=== PATIENT | male | born 1965 | race Caucasian/White ===

== ENCOUNTER 2021-02-12 11:44 | Observation (INO) | payer OTHER ==
[~2021-02-12] VITALS: Ht 175.3 cm; Wt 104.7 kg
[2021-02-12 12:35] LABS: BASOPHILS ABSOLUTE AUTO 0.02 K/mm3 (0.00-0.23); BASOPHILS PERCENT AUTO 0 % (0-2); EOSINOPHILS PERCENT AUTO 2 % (0-6); Hemoglobin 15.9 g/dL (13.5-17.5); IMMATURE GRAN ABSOLUTE AUTO 0.02 K/mm3 (0.00-0.10); IMMATURE GRAN PERCENT AUTO 0 % (0-1); LYMPHOCYTES ABSOLUTE AUTO 1.21 K/mm3 (0.84-5.20); LYMPHOCYTES PERCENT AUTO 18 % (21-46); MONOCYTES PERCENT AUTO 10 % (4-13); Mean Corpuscular HGB 30.3 pg (26.0-34.0); Mean Corpuscular HGB Conc 33.1 g/dL (31.5-36.5); Mean Corpuscular Volume 92 fL (80-100); Mean Platelet Volume 10.5 fL (9.1-12.4); NEUTROPHILS ABSOLUTE AUTO 4.81 K/mm3 (1.96-9.15); NEUTROPHILS PERCENT AUTO 70 % (41-73); Platelet Count 177 K/mm3 (150-400); RDW Coefficient Variation 12.7 % (11.7-14.2); RDW Standard Deviation 43.1 fL (35.1-46.3); Red Blood Cell Count 5.24 M/mm3 (4.30-5.90); White Blood Cell Count 6.86 K/mm3 (4.00-11.30)
[2021-02-12 12:59] LABS: Alanine Aminotransfer (ALT/SGP 43 U/L (12-78); Albumin, Blood 3.8 g/dL (3.4-5.0); Albumin/Globulin Ratio 1.1 (0.8-1.8); Alk Phos 91 U/L (50-136); Anion Gap 6 mmol/L (6-16); Aspartate Aminotrans (AST/SGOT 25 U/L (12-37); Bilirubin, Total 0.7 mg/dL (0.1-1.0); Blood Urea Nitrogen 19 mg/dL (8-24); Bun/Creatinine Ratio 17.4 (12.0-20.0); CO2, Blood 23 mmol/L (21-32); Chloride, Blood 112 mmol/L (98-108); Creatinine, Blood 1.09 mg/dL (0.60-1.20); Globulin, Blood 3.6 g/dL (2.2-4.0); Glomerular Filtration Rate >60 (60-); Glucose, Blood 100 mg/dL (70-99); Potassium, Blood 3.9 mmol/L (3.5-5.5); Sodium, Blood 141 mmol/L (136-145); Total Protein, Blood 7.4 g/dL (6.4-8.2)
--- NOTE | 2021-02-12 17:46 | NUR ---
PT ARRIVED TO UNIT AT APROX 1740 FROM ER. PT WITH C/O LUQ/EPIGASTRIC PAIN, DESCRIBES "BURNING", REPORTS TOLERABLE AT THIS TIME. PT IS NPO. VSS AT TIME OF ARRIVAL.
[2021-02-13 06:20] LABS: BASOPHILS ABSOLUTE AUTO 0.02 K/mm3 (0.00-0.23); BASOPHILS PERCENT AUTO 0 % (0-2); EOSINOPHILS PERCENT AUTO 2 % (0-6); Hematocrit 44.8 % (37.0-53.0); Hemoglobin 14.8 g/dL (13.5-17.5); IMMATURE GRAN ABSOLUTE AUTO 0.02 K/mm3 (0.00-0.10); IMMATURE GRAN PERCENT AUTO 0 % (0-1); LYMPHOCYTES ABSOLUTE AUTO 1.75 K/mm3 (0.84-5.20); LYMPHOCYTES PERCENT AUTO 27 % (21-46); MONOCYTES ABSOLUTE AUTO 0.72 K/mm3 (0.16-1.47); MONOCYTES PERCENT AUTO 11 % (4-13); Mean Corpuscular HGB 30.8 pg (26.0-34.0); Mean Corpuscular Volume 93 fL (80-100); Mean Platelet Volume 11.3 fL (9.1-12.4); NEUTROPHILS ABSOLUTE AUTO 3.79 K/mm3 (1.96-9.15); NEUTROPHILS PERCENT AUTO 59 % (41-73); Platelet Count 146 K/mm3 (150-400); RDW Coefficient Variation 12.8 % (11.7-14.2); RDW Standard Deviation 44.4 fL (35.1-46.3); Red Blood Cell Count 4.81 M/mm3 (4.30-5.90)
[2021-02-13 06:34] LABS: Prothrombin Time Results 10.8 Sec (9.7-11.5)
[2021-02-13 07:12] LABS: Alanine Aminotransfer (ALT/SGP 32 U/L (12-78); Albumin, Blood 3.3 g/dL (3.4-5.0); Albumin/Globulin Ratio 1.2 (0.8-1.8); Alk Phos 69 U/L (50-136); Anion Gap 5 mmol/L (6-16); Aspartate Aminotrans (AST/SGOT 20 U/L (12-37); Bilirubin, Total 1.4 mg/dL (0.1-1.0); Blood Urea Nitrogen 15 mg/dL (8-24); Bun/Creatinine Ratio 12.8 (12.0-20.0); CHOL/HDL RATIO 4.5; CO2, Blood 25 mmol/L (21-32); Calcium, Blood 8.1 mg/dL (8.5-10.1); Chloride, Blood 113 mmol/L (98-108); Cholesterol 195 mg/dL (50-200); Creatinine, Blood 1.17 mg/dL (0.60-1.20); Globulin, Blood 2.8 g/dL (2.2-4.0); Glomerular Filtration Rate >60 (60-); Glucose, Blood 82 mg/dL (70-99); HDL Cholesterol 43 mg/dL (>39); LDL/HDL RATIO 3.1; Low Density Lipoprotein Chol 134 mg/dL (0-110); Potassium, Blood 3.9 mmol/L (3.5-5.5); Sodium, Blood 143 mmol/L (136-145); Total Protein, Blood 6.1 g/dL (6.4-8.2); Triglycerides 91 mg/dL (30-160); Very Low Density Lipoprot Chol 18 mg/dL (6-32)
[2021-02-13 10:56] LABS: SARS-Cov-2 (COVID-19) PCR, MMC NEGATIVE (NEGATIVE)
--- NOTE | 2021-02-13 12:54 | NUR ---
PT IN 10 PAIN BREATHING THRU PAIN GROANING BP ELEVATED PT GIVEN DILAUDID 1MG IVP PER PRN PAIN ORDER
--- NOTE | 2021-02-13 13:09 | NUR ---
PT TO OR AT APROX 1230.
--- NOTE | 2021-02-13 15:02 | NUR ---
02/13/21 1502 [facility] SCHEDULED DOSE OF ANTIBIOTICS DUE AT 1800 ON 02/13/21, DR MADE AWARE, NO NEW ORDERS.
--- NOTE | 2021-02-13 18:25 | NUR ---
SHIFT SUMMARY PT POD 0 LAP CLARE. LAP SITES X'S 3 WITH GAUZE AND TEGADERM C/D/I. PT REPORTS "PRESSURE" 02/27, MEDICATED WITH 1MG DILUADID WITH RELIEF 10/28. PT GIVEN CLEAR LIQUIDS, WILL ADVANCE TOLERATED.
--- NOTE | 2021-02-14 04:29 | NUR ---
SHIFT SUMMARY: PT POD#1 FOR A LAP CLARE. GAUZE SITES C/D/I. PAIN BEING MANAGED WITH 1MG DILAUDID PER EMAR. PT TOLERATING A CLEAR LIQUID DIET. DENIES N/V. ACTIVE BT X4. DENIES PASSING FLATUS. PT OUT OF BED TO USE RESTROOM INDEPENDENTLY. VOIDING WELL. POSSIBLE DISCHARGE HOME TODAY.
[2021-02-14 04:57] LABS: Hematocrit 43.6 % (37.0-53.0); Hemoglobin 14.4 g/dL (13.5-17.5); Mean Corpuscular HGB 30.5 pg (26.0-34.0); Mean Corpuscular Volume 92 fL (80-100); Platelet Count 160 K/mm3 (150-400); RDW Coefficient Variation 12.8 % (11.7-14.2); RDW Standard Deviation 43.8 fL (35.1-46.3); Red Blood Cell Count 4.72 M/mm3 (4.30-5.90); White Blood Cell Count 10.68 K/mm3 (4.00-11.30)
[2021-02-14 05:19] LABS: Alanine Aminotransfer (ALT/SGP 53 U/L (12-78); Albumin, Blood 3.3 g/dL (3.4-5.0); Albumin/Globulin Ratio 1.1 (0.8-1.8); Alk Phos 68 U/L (50-136); Anion Gap 6 mmol/L (6-16); Aspartate Aminotrans (AST/SGOT 37 U/L (12-37); Bilirubin, Total 1.5 mg/dL (0.1-1.0); Blood Urea Nitrogen 11 mg/dL (8-24); Bun/Creatinine Ratio 9.4 (12.0-20.0); CO2, Blood 25 mmol/L (21-32); Calcium, Blood 8.6 mg/dL (8.5-10.1); Chloride, Blood 110 mmol/L (98-108); Creatinine, Blood 1.17 mg/dL (0.60-1.20); Globulin, Blood 3.1 g/dL (2.2-4.0); Glomerular Filtration Rate >60 (60-); Glucose, Blood 106 mg/dL (70-99); Sodium, Blood 141 mmol/L (136-145); Total Protein, Blood 6.4 g/dL (6.4-8.2)
[2021-02-14] MEDS ORDERED: Norco 5-325 Ta1 EACH PO (14:21)
--- NOTE | 2021-02-14 15:32 | NUR ---
DC INSTRUCTIONS GIVEN, VERBALIZED UNDERSTANDING, DC'D TO PT'S APARTMENT [facility]IA [facility], IV'S DC'D, [facility] INTACT.
== END 2021-02-14 15:34 | disposition home or self-care (01) ==
LOC: ER 11:44 → SURS 11:45 → ER 16:55 → SURS 16:55
PROVIDERS: Physician Assistant; Surgery; ADMIT Internal Medicine
PROC: BF10YZZ Fluoroscopy of Bile Ducts using Other Contrast (ICD-10-PCS; principal; 2021-02-13 12:00)
PROC: 0FT44ZZ Resection of Gallbladder, Percutaneous Endoscopic Approach (ICD-10-PCS; principal; 2021-02-13 12:00)
DX: K80.12 Calculus of gallbladder with acute and chronic cholecystitis without obstruction (principal); J45.909 Unspecified asthma, uncomplicated; Z87.891 Personal history of nicotine dependence; M41.9 Scoliosis, unspecified; K76.0 Fatty (change of) liver, not elsewhere classified; Z20.822 Contact with and (suspected) exposure to COVID-19
CPT/HCPCS: 36415; 74300; 76705; 80053; 80061; 83690; 83735; 84443; 85025; 85027; 85610; A9270; C9113; J1100; J1170; J1650; J1885; J2250; J2270; J2405; J2543; J2704; J2710; J2765; J3010; J7030; U0004

== ENCOUNTER → 2021-02-27 | Outpatient (CLI) | payer OTHER ==
[~2021-02-27] MED LIST: AMOCLA875 PO; Norco 5-325 Ta1 EACH PO; Norco 7.5-3251 EACH PO; ONDA4ODT MM; PANT40 PO
[2021-02-27 10:27] LABS: SARS-Cov-2 (COVID-19) PCR, MMC NEGATIVE (NEGATIVE)
== END | disposition home or self-care (01) ==
LOC: LAB PR 09:33
PROVIDERS: Anesthesiology
DX: Z01.812 Encounter for preprocedural laboratory examination (principal); Z20.822 Contact with and (suspected) exposure to COVID-19
CPT/HCPCS: U0004

== ENCOUNTER 2021-03-16 16:49 | Emergency (ER) | payer OTHER ==
[~2021-03-16] VITALS: Ht 175.3 cm; Wt 104.3 kg
[~2021-03-16 16:49] MED LIST changes: -AMOCLA875 PO; -Norco 7.5-3251 EACH PO; -ONDA4ODT MM; -PANT40 PO
[2021-03-16 17:22] LABS: BASOPHILS ABSOLUTE AUTO 0.02 K/mm3 (0.00-0.23); BASOPHILS PERCENT AUTO 0 % (0-2); EOSINOPHILS ABSOLUTE AUTO 0.02 K/mm3 (0.00-0.68); EOSINOPHILS PERCENT AUTO 0 % (0-6); Hematocrit 48.2 % (37.0-53.0); Hemoglobin 16.4 g/dL (13.5-17.5); IMMATURE GRAN ABSOLUTE AUTO 0.03 K/mm3 (0.00-0.10); IMMATURE GRAN PERCENT AUTO 0 % (0-1); LYMPHOCYTES PERCENT AUTO 10 % (21-46); MONOCYTES ABSOLUTE AUTO 0.93 K/mm3 (0.16-1.47); MONOCYTES PERCENT AUTO 9 % (4-13); Mean Corpuscular HGB 30.6 pg (26.0-34.0); Mean Corpuscular Volume 90 fL (80-100); Mean Platelet Volume 11.1 fL (9.1-12.4); NEUTROPHILS ABSOLUTE AUTO 8.68 K/mm3 (1.96-9.15); NEUTROPHILS PERCENT AUTO 81 % (41-73); Platelet Count 215 K/mm3 (150-400); RDW Coefficient Variation 12.6 % (11.7-14.2); RDW Standard Deviation 41.3 fL (35.1-46.3); Red Blood Cell Count 5.36 M/mm3 (4.30-5.90); White Blood Cell Count 10.78 K/mm3 (4.00-11.30)
[2021-03-16 17:39] LABS: Albumin, Blood 4.3 g/dL (3.4-5.0); Albumin/Globulin Ratio 1.2 (0.8-1.8); Bilirubin, Total 2.1 mg/dL (0.1-1.0); Bun/Creatinine Ratio 12.7 (12.0-20.0); Calcium, Blood 9.2 mg/dL (8.5-10.1); Creatinine, Blood 1.26 mg/dL (0.60-1.20); Globulin, Blood 3.6 g/dL (2.2-4.0); Potassium, Blood 3.9 mmol/L (3.5-5.5); Total Protein, Blood 7.9 g/dL (6.4-8.2)
[2021-03-16] MEDS ORDERED: PANT40 PO (20:37)
[2021-03-16] MEDS ORDERED: ONDA4ODT MM (20:37)
[2021-03-16] MEDS ORDERED: Norco 7.5-3251 EACH PO (20:37)
[2021-03-16] MEDS ORDERED: AMOCLA875 PO (20:37)
== END 2021-03-16 21:25 | disposition home or self-care (01) ==
LOC: ER 16:49
PROVIDERS: Physician Assistant
DX: K52.9 Noninfective gastroenteritis and colitis, unspecified (principal); Z90.49 Acquired absence of other specified parts of digestive tract
CPT/HCPCS: 74177; 80053; 83690; 85025; 93005; 93010; 96374-59; 96375; 99284-25; A9270; J2405; J3010; Q9967

== ENCOUNTER 2021-04-14 05:52 | Emergency (ER) | payer OTHER ==
[~2021-04-14] VITALS: Ht 175.3 cm; Wt 108.9 kg
[~2021-04-14 05:52] MED LIST changes: +AMOCLA875 PO; +Norco 7.5-3251 EACH PO; +ONDA4ODT MM; +PANT40 PO
[2021-04-14 06:23] LABS: BASOPHILS ABSOLUTE AUTO 0.02 K/mm3 (0.00-0.23); BASOPHILS PERCENT AUTO 0 % (0-2); EOSINOPHILS PERCENT AUTO 0 % (0-6); Hematocrit 52.4 % (37.0-53.0); IMMATURE GRAN ABSOLUTE AUTO 0.02 K/mm3 (0.00-0.10); IMMATURE GRAN PERCENT AUTO 0 % (0-1); LYMPHOCYTES ABSOLUTE AUTO 0.98 K/mm3 (0.84-5.20); LYMPHOCYTES PERCENT AUTO 10 % (21-46); MONOCYTES ABSOLUTE AUTO 0.62 K/mm3 (0.16-1.47); MONOCYTES PERCENT AUTO 6 % (4-13); Mean Corpuscular HGB 30.7 pg (26.0-34.0); Mean Corpuscular HGB Conc 34.4 g/dL (31.5-36.5); Mean Corpuscular Volume 89 fL (80-100); Mean Platelet Volume 10.4 fL (9.1-12.4); NEUTROPHILS ABSOLUTE AUTO 8.69 K/mm3 (1.96-9.15); NEUTROPHILS PERCENT AUTO 84 % (41-73); Platelet Count 209 K/mm3 (150-400); RDW Coefficient Variation 12.3 % (11.7-14.2); RDW Standard Deviation 40.6 fL (35.1-46.3); Red Blood Cell Count 5.86 M/mm3 (4.30-5.90); White Blood Cell Count 10.33 K/mm3 (4.00-11.30)
[2021-04-14 06:43] LABS: Albumin, Blood 4.2 g/dL (3.4-5.0); Calcium, Blood 9.6 mg/dL (8.5-10.1); Creatinine, Blood 1.36 mg/dL (0.60-1.20); Potassium, Blood 3.9 mmol/L (3.5-5.5); Total Protein, Blood 8.2 g/dL (6.4-8.2)
[2021-04-14 07:09] LABS: Troponin I <0.015 ng/mL (0.000-0.040)
[2021-04-14 10:09] LABS: Source, Urine Clean Catch
[2021-04-14 10:14] LABS: Appearance, Urine Clear (Clear); Bilirubin, Urine Neg (Neg); Blood, Urine Neg (Neg); Color, Urine Yellow (P-Yellow); Glucose Qualitative, Urine Neg (Neg); Ketones, Urine 4+ (Neg); Leukocyte Esterase, Urine Neg (Neg); Nitrite, Urine Neg (Neg); Protein, Urine 2+ (Neg); Specific Gravity, Urine 1.015 (1.003-1.022); Urobilinogen, Urine NORM (Normal)
[2021-04-14 10:23] LABS: Bacteria Not Seen /hpf; Red Blood Cells, Urine 0-2 /hpf (0-2); Squamous Epithelial Cells Rare /hpf (Few); White Blood Cells, Urine 0-2 /hpf (0-5)
[2021-04-14 10:24] LABS: Granular Casts 0-2 /lpf (0)
== END 2021-04-14 10:43 | disposition home or self-care (01) ==
LOC: ER 05:52
PROVIDERS: Emergency Medicine; Student in an Organized Health Care Education/Training Program
DX: R10.11 Right upper quadrant pain (principal); Z90.49 Acquired absence of other specified parts of digestive tract
CPT/HCPCS: 36415; 74175; 80053; 81001; 83690; 84484; 85025; 93005; 93010; 96361; 96374; 96375; 99284-25; J2405; J2765; J3010; J7030; Q9967

== ENCOUNTER → 2021-06-29 | Outpatient (CLI) | payer OTHER | LOC: LAB 16:54 → LAB SHORT 16:54 | DX: L72.3 Sebaceous cyst (principal) | CPT/HCPCS: 87070; 87075; 87205 ==

== ENCOUNTER 2021-10-25 10:11 | Day surgery (SDC) | payer OTHER ==
[~2021-10-25] VITALS: Ht 172.7 cm; Wt 105.0 kg
[2021-10-25] MEDS ORDERED: HYDR1TAB94 PO (11:02)
[2021-10-25] MEDS ORDERED: GABA300 PO (11:02)
[2021-10-25] MEDS ORDERED: METO5A PO (11:03)
[2021-10-25] MEDS ORDERED: PANT40 PO (11:04)
[2021-10-25] MEDS ORDERED: VITAMIN D5000 UNIT PO (11:04)
--- NOTE | 2021-10-25 11:45 | NUR ---
PT DROWSY, BUT CONVERSING APPROPRIATELY POST PROCEDURE; DENIES PAIN POST PROCEDURE. MONITOR SB 50'S, B/P 101/66, SPO2 96% RA. CHEST LINQ SITE NO SWELLING/HEMATOMA, TELFA AND JULIANNA DRSG INTACT.
--- NOTE | 2021-10-25 12:20 | NUR ---
PT DRESSED SELF WITHOUT ISSUE; IV REMOVED-CANNULA INTACT.
--- NOTE | 2021-10-25 12:33 | NUR ---
PT RECEIVED DISCHARGE INSTRUCTIONS, MED LIST AND AFTER CARE INSTRUCTIONS; VERBALIZED GOOD UNDERSTANDING. [employer] REP INSTRUCTED PT ON LINQ EQUIPMENT. PT LEFT FACILITY VIA W/C, CONDITION STABLE.
== END 2021-10-25 22:56 | disposition home or self-care (01) ==
LOC: MHTC 10:11
DX: R55 Syncope and collapse (principal); R00.1 Bradycardia, unspecified
CPT/HCPCS: 99152; C1764; J2250; J7040

== ENCOUNTER 2021-12-31 12:26 | Inpatient (IN) | payer OTHER ==
[~2021-12-31] VITALS: Ht 172.7 cm; Wt 107.5 kg
[~2021-12-31 12:26] MED LIST changes: +GABA300 PO; +HYDR1TAB94 PO; +METO5A PO; +VITAMIN D5000 UNIT PO
[2021-12-31 14:49] LABS: BASOPHILS ABSOLUTE AUTO 0.02 K/mm3 (0.00-0.23); BASOPHILS PERCENT AUTO 0 % (0-2); EOSINOPHILS ABSOLUTE AUTO 0.11 K/mm3 (0.00-0.68); EOSINOPHILS PERCENT AUTO 2 % (0-6); Hematocrit 46.2 % (37.0-53.0); Hemoglobin 15.6 g/dL (13.5-17.5); IMMATURE GRAN ABSOLUTE AUTO 0.02 K/mm3 (0.00-0.10); IMMATURE GRAN PERCENT AUTO 0 % (0-1); LYMPHOCYTES ABSOLUTE AUTO 1.72 K/mm3 (0.84-5.20); LYMPHOCYTES PERCENT AUTO 29 % (21-46); MONOCYTES ABSOLUTE AUTO 0.71 K/mm3 (0.16-1.47); MONOCYTES PERCENT AUTO 12 % (4-13); Mean Corpuscular HGB 30.5 pg (26.0-34.0); Mean Corpuscular HGB Conc 33.8 g/dL (31.5-36.5); Mean Corpuscular Volume 90 fL (80-100); Mean Platelet Volume 10.6 fL (9.1-12.4); NEUTROPHILS ABSOLUTE AUTO 3.37 K/mm3 (1.96-9.15); NEUTROPHILS PERCENT AUTO 57 % (41-73); Platelet Count 161 K/mm3 (150-400); RDW Coefficient Variation 12.8 % (11.7-14.2); RDW Standard Deviation 42.3 fL (35.1-46.3); Red Blood Cell Count 5.11 M/mm3 (4.30-5.90); White Blood Cell Count 5.95 K/mm3 (4.00-11.30)
[2021-12-31 15:14] LABS: Albumin, Blood 3.9 g/dL (3.4-5.0); Albumin/Globulin Ratio 1.2 (0.8-1.8); Bilirubin, Total 1.1 mg/dL (0.1-1.0); Bun/Creatinine Ratio 15.2 (12.0-20.0); Calcium, Blood 8.9 mg/dL (8.5-10.1); Creatinine, Blood 1.12 mg/dL (0.60-1.20); Globulin, Blood 3.2 g/dL (2.2-4.0); Potassium, Blood 3.7 mmol/L (3.5-5.5); Total Protein, Blood 7.1 g/dL (6.4-8.2)
[2021-12-31] MEDS ORDERED: FAMO40 PO (15:43)
[2021-12-31] MEDS ORDERED: FLUO10 PO (15:44)
--- NOTE | 2021-12-31 19:36 | NUR ---
CARE ASSUMPTION: RECEIVED REPORT FROM NAE SANDOVAL RN. PATIENT IN BED WATCHING BASEBALL WITH DINNER TRAY ON SIDE TABLE. PATIENT APPEARS EMOTIONALLY GUARDED - RESPONDS WITH ONE WORD ANSWERS, DOESN'T MAKE EYE CONTACT - AND REPORTS HE DIDN'T "PLAN ON THE DAY GOING THIS WAY." EDUCATED ON NPO STATUS AT MIDNIGHT AND PATIENT STATED HE WILL LIKELY WANT A SNACK LATER HE HASN'T EATEN SINCE YESTERDAY AFTERNOON. ORIENTED TO BED CONTROLS AND PCU VS SCHEDULE. CALL LIGHT IN REACH.
--- NOTE | 2022-01-01 05:23 | NUR ---
SHIFT SUMMARY: PATIENT HR 41-62 BPM IN BED AND 60-80S WHEN AMBULATING; TYPICALLY IN MID-40S. BP WNL, AFEBRILE, O2 SATURATION >95% RA. NO SYNCOPAL EVENTS AND PATIENT DENIES DISCOMFORT OR SOB. COOPERATIVE WITH CARE THOUGH WITHDRAWN. PATIENT AMBULATES WITH AND W/O SUPERVISION TO TOILET. HAS NOT USED CALL LIGHT THIS SHIFT AT TIME OF NOTE. MEDICATED PER EMAR. BED LOW WITH CALL LIGHT IN REACH. HAS BEEN NPO SINCE MIDNIGHT IN ANTICIPATION OF PACEMAKER PLACEMENT TODAY. WILL CONTINUE TO MONITOR AND REPORT TO ONCOMING RN.
[2022-01-01 07:54] LABS: International Normalized Ratio 1.02; Prothrombin Time Results 10.7 Sec (9.7-11.5)
[2022-01-01 08:30] LABS: SARS-Cov-2 (COVID-19) PCR, MMC NEGATIVE (NEGATIVE)
--- NOTE | 2022-01-01 10:32 | NUR ---
PT CURRENTLY TAKNE TO [employer] TECHNICIAN NOW FOR PACEMAKER PLACEMENT
--- NOTE | 2022-01-01 18:13 | NUR ---
PT SUMMARY: PT HAD PACEMAKER PLACED TODAY LEFT UPPER CHEST DUAL CHAMBER RA, RV HRR NOW PACED AT 60'S. PT DENIES CHEST PAIN/PRESSURE HAS SOME TENDERNESS AT THE SITE BUT IS TOLERABLE AT THIS TIME, SLING ON LEFT ARM FOR IMMOBILISZATION, PT EDUCATED ABOUT IMPORTANCE OF NOT EXTENDING ARMS AND KEEPING ARM ON THE SLING PT VERBALIZED UNDERSTANDING. CHEST XRAY AND EKG DONE GRAPH ON THE CHART. BP SYSTOLIC 130'S, SATS ABOVE 95% ON RA, AFEBRILE. DIET RESUMED PT ABLE TO TOLERATE. PT CURRENTLY RESTING IN BED AT THIS TIME, NO OTHER ISSUES REPORTED, [facility]
--- NOTE | 2022-01-01 23:13 | NUR ---
CARE ASSUMPTION: RECEIVED REPORT FROM EWA ANDERSON RN. PATIENT RECOVERED FROM PACEMAKER PLACEMENT. LEFT ARM IN SLING AND PATIENT REMINDER TO NOT MOVE LEFT ARM. PATIENT STATED TYLENOL DID NOT HELP WITH HEADACHE AND NOW HIS CHEST IS ACHING AT THE INCISION SITE. INCISION SITES C/D/I AND WNL. PACER PACING AT 60 BPM. PATIENT AMBULATED TO TOILET INDEPENDENTLY AND DENIED SOB, CHEST PAIN, OR DIZZINESS. CALL LIGHT IN REACH AND BED LOW.
[2022-01-02 04:36] LABS: BASOPHILS ABSOLUTE AUTO 0.02 K/mm3 (0.00-0.23); BASOPHILS PERCENT AUTO 0 % (0-2); EOSINOPHILS ABSOLUTE AUTO 0.12 K/mm3 (0.00-0.68); EOSINOPHILS PERCENT AUTO 2 % (0-6); Hematocrit 42.6 % (37.0-53.0); Hemoglobin 13.8 g/dL (13.5-17.5); IMMATURE GRAN ABSOLUTE AUTO 0.01 K/mm3 (0.00-0.10); IMMATURE GRAN PERCENT AUTO 0 % (0-1); LYMPHOCYTES ABSOLUTE AUTO 1.41 K/mm3 (0.84-5.20); LYMPHOCYTES PERCENT AUTO 19 % (21-46); MONOCYTES ABSOLUTE AUTO 0.85 K/mm3 (0.16-1.47); MONOCYTES PERCENT AUTO 12 % (4-13); Mean Corpuscular HGB 30.1 pg (26.0-34.0); Mean Corpuscular HGB Conc 32.4 g/dL (31.5-36.5); Mean Corpuscular Volume 93 fL (80-100); Mean Platelet Volume 10.9 fL (9.1-12.4); NEUTROPHILS ABSOLUTE AUTO 4.87 K/mm3 (1.96-9.15); NEUTROPHILS PERCENT AUTO 67 % (41-73); Platelet Count 136 K/mm3 (150-400); RDW Standard Deviation 44.1 fL (35.1-46.3); Red Blood Cell Count 4.58 M/mm3 (4.30-5.90); White Blood Cell Count 7.28 K/mm3 (4.00-11.30)
[2022-01-02 05:02] LABS: Bun/Creatinine Ratio 14.4 (12.0-20.0); Calcium, Blood 8.2 mg/dL (8.5-10.1); Creatinine, Blood 1.32 mg/dL (0.60-1.20); Potassium, Blood 3.9 mmol/L (3.5-5.5)
--- NOTE | 2022-01-02 05:45 | NUR ---
SHIFT SUMMARY: PATIENT DENIES CHEST PAIN, SOB, N/V, OR DIZZINESS. HAS SORENESS AT PACER SITE AND NEEDS REMINDED NOT TO MOVE LEFT ARM - SITE WNL, DRESSINGS C/D/I. VSS T/O SHIFT. PACER PACING 100% THOUGH MONITORING MISSES SOME PACED BEATS. MEDICATED PER EMAR. AMBULATES TO TOILET. PATIENT ANXIOUS TO GO HOME TODAY. BED LOW WITH CALL LIGHT IN REACH. WILL CONTINUE TO MONITOR AND REPORT TO ONCOMING RN.
--- NOTE | 2022-01-02 06:24 | NUR ---
UPDATE: PATIENT TRANSFERRED TO IMAGING VIA W/C AT THIS TIME.
--- NOTE | 2022-01-02 06:33 | NUR ---
PATIENT RETURNED TO ROOM VIA W/C AT THIS TIME.
[2022-01-02] MEDS ORDERED: CEPH500 PO (10:37)
--- NOTE | 2022-01-02 10:38 | NUR ---
Prescription for Keflex was called into the pts pharmacy, [facility], at this time.
--- NOTE | 2022-01-02 12:03 | NUR ---
PT DISCHARGE HOME TODAY WIHT DISCHARGE ORDERS, NO ACUTE EVENTS REPORTED LAST NIGHT, PT HAS BEEN TKAING PAIN MEDICINE FOR TENDERNESS ON THE SITE, LEFT CHEST SITE DRESSING REMAINED IN TACT FOR THE SHIFT, SLING ON LEFT ARM. HOME POST PACER INSTRUCTIONS PROVIDED, PT TO COMPLETE PO ABO DOSE AT HOME, TO FOLLOW UP AT THE PACER CLINIC AND AT THE CARDIOLOGISTS OFFICE. NO OTHER COMPLAINTS PRIOR TO DISCHARGE, ALL BELONGINGS SENT WITH THE PT, [facility] CALLED AND SET UP FOR TRANSPORT.
== END 2022-01-02 11:07 | disposition home or self-care (01) | DRG 243 ==
LOC: ER 12:26 → PCU 17:29
PROVIDERS: Family Medicine; Internal Medicine Interventional Cardiology; Physician Assistant; ADMIT Internal Medicine
PROC: 0JH606Z Insertion of Pacemaker, Dual Chamber into Chest Subcutaneous Tissue and Fascia, Open Approach (ICD-10-PCS; principal; 2022-01-01)
PROC: 02HK3JZ Insertion of Pacemaker Lead into Right Ventricle, Percutaneous Approach (ICD-10-PCS; 2022-01-01)
PROC: 0JPT02Z Removal of Monitoring Device from Trunk Subcutaneous Tissue and Fascia, Open Approach (ICD-10-PCS; 2022-01-01)
PROC: 02H63JZ Insertion of Pacemaker Lead into Right Atrium, Percutaneous Approach (ICD-10-PCS; 2022-01-01)
DX: T82.897A Other specified complication of cardiac prosthetic devices, implants and grafts, initial encounter (principal); F11.20 Opioid dependence, uncomplicated; I49.5 Sick sinus syndrome; M54.9 Dorsalgia, unspecified; G89.29 Other chronic pain; F32.A Depression, unspecified; K21.9 Gastro-esophageal reflux disease without esophagitis; M41.9 Scoliosis, unspecified; J45.909 Unspecified asthma, uncomplicated; Z20.822 Contact with and (suspected) exposure to COVID-19; Z90.49 Acquired absence of other specified parts of digestive tract; Z87.19 Personal history of other diseases of the digestive system; Z79.899 Other long term (current) drug therapy; Z95.818 Presence of other cardiac implants and grafts
CPT/HCPCS: 33228; 36415; 71045; 71046; 80048; 80053; 84443; 84484; 85025; 85610; 93005; 93010; 93306; 96374; 99152; 99153; 99285-25; A9270; C1785; C1898; J0461; J0690; J1644; J2250; J3010; J7030; J7040; Q9967; U0004

== ENCOUNTER → 2022-01-05 | Outpatient (CLI) | payer OTHER ==
[~2022-01-05] MED LIST changes: +CEPH500 PO; +FAMO40 PO; +FLUO10 PO; -VITAMIN D5000 UNIT PO; +Vitamin D1000 UNI1 PO
== END | disposition home or self-care (01) ==
LOC: LAB 12:01 → LAB SHORT 12:01
DX: T78.8XXA Other adverse effects, not elsewhere classified, initial encounter (principal)
CPT/HCPCS: 87070; 87205

== ENCOUNTER 2022-03-26 09:32 | Day surgery (SDC) | payer OTHER ==
[~2022-03-26] VITALS: Ht 172.7 cm; Wt 105.4 kg
[2022-03-26] MEDS ORDERED: GABA100 (09:59)
[2022-03-26] MEDS ORDERED: Amitriptyline H25 MG (10:01)
[2022-03-26] MEDS ORDERED: FLUO10 (10:02)
[2022-03-26] MEDS ORDERED: FAMO10 (10:02)
[2022-03-26] MEDS ORDERED: Norco 5-325 Ta1 EACH (10:02)
[2022-03-26] MEDS ORDERED: METO10SY (10:03)
--- NOTE | 2022-03-26 10:47 | NUR ---
03/26/22 1047 Linsey Segundo PT. GOT CLAMMY WITH IV STARTS. PER PT. HE DOESN'T LIKE NEEDLES. PT. FELT NAUSEATED AFTER IV IN, DR. ELY NOTIFIED & GAVE PT. SOME ZOFRAN & UPON ENTERING ENDO ROOM AT 1036 PT. VERBALIZED NAUSEA WAS BETTER. PT. ALSO GIVEN A COOL WASHCLOTH.
--- NOTE | 2022-03-26 11:34 | NUR ---
03/26/22 3526 Linsey Segundo PT. HAD VERBALIZED THAT HE HAD DONE SOMETHING TO HIS RIGHT SHOULDER/ARM & WAS GOING TO SEE AN ORTHOPEDIC DR. PT. VERBALIZES HE CAN'T LIFT IT, PT. WAS GIVEN A PILLOW IN ENDO ROOM TO REST HIS ARM ON DURING PROCEDURE.
--- NOTE | 2022-03-26 12:22 | NUR ---
03/26/22 1222 Segundo,Linsey Tito 1153 PT. DONE WITH HIS COLONOSCOPY. PT. C/O ABD. CRAMPING RATING "6". PT. STATES "MUY STOMACH DOESN'T FEEL TOO GOOD, LIKE I'VE BEEN HIT, SENSITIVE. DR. WATTERS IN PT. ROOM WHEN PT. C/O ABD. CRAMPING. PT. CAME IN WITH SAME ABD. PAIN RATING "4". DR. WATTERS ORDERED ABD. XRAY 2 VIEWS. (PLACED ORDER AT 1213.) AWAITING IMAGING TO CALL FOR PT. TO GO FOR XRAY. PT. RUBBING ABD.
== END 2022-03-26 13:30 | disposition home or self-care (01) ==
LOC: ORSCSDS 09:32
PROVIDERS: Student in an Organized Health Care Education/Training Program
PROC: 0DBL8ZX Excision of Transverse Colon, Via Natural or Artificial Opening Endoscopic, Diagnostic (ICD-10-PCS; principal; 2022-03-26 11:00)
PROC: 0DBN8ZX Excision of Sigmoid Colon, Via Natural or Artificial Opening Endoscopic, Diagnostic (ICD-10-PCS; principal; 2022-03-26 11:00)
PROC: 0DBK8ZX Excision of Ascending Colon, Via Natural or Artificial Opening Endoscopic, Diagnostic (ICD-10-PCS; principal; 2022-03-26 11:00)
PROC: 0DBM8ZX Excision of Descending Colon, Via Natural or Artificial Opening Endoscopic, Diagnostic (ICD-10-PCS; principal; 2022-03-26 11:00)
DX: K92.1 Melena (principal); R10.13 Epigastric pain; D12.2 Benign neoplasm of ascending colon; D12.3 Benign neoplasm of transverse colon; K63.5 Polyp of colon; K62.1 Rectal polyp; K57.30 Diverticulosis of large intestine without perforation or abscess without bleeding; K64.8 Other hemorrhoids; J45.909 Unspecified asthma, uncomplicated; F41.8 Other specified anxiety disorders; Z79.899 Other long term (current) drug therapy; Z95.0 Presence of cardiac pacemaker; E66.9 Obesity, unspecified; Z68.34 Body mass index [BMI] 34.0-34.9, adult
CPT/HCPCS: 74019; 88305; J1100; J2250; J2370; J2405; J2704; J7120

== ENCOUNTER → 2023-01-30 | Outpatient (CLI) | payer OTHER ==
[~2023-01-30] MED LIST changes: +Amitriptyline H25 MG; +FAMO10; +FLUO10; +GABA100; +METO10SY; +Norco 5-325 Ta1 EACH
== END | disposition home or self-care (01) ==
LOC: LAB SHORT 17:40 → LAB 17:40
DX: L03.312 Cellulitis of back [any part except buttock and flank] (principal)
CPT/HCPCS: 87070; 87205

== ENCOUNTER → 2023-08-27 | Outpatient (CLI) | payer OTHER ==
[2023-08-27 16:15] LABS: BASOPHILS ABSOLUTE AUTO 0.04 K/mm3 (0.00-0.23); BASOPHILS PERCENT AUTO 1 % (0-2); EOSINOPHILS ABSOLUTE AUTO 0.19 K/mm3 (0.00-0.68); EOSINOPHILS PERCENT AUTO 3 % (0-6); Hematocrit 47.3 % (37.0-53.0); Hemoglobin 15.3 g/dL (13.5-17.5); IMMATURE GRAN ABSOLUTE AUTO 0.08 K/mm3 (0.00-0.10); IMMATURE GRAN PERCENT AUTO 1 % (0-1); LYMPHOCYTES ABSOLUTE AUTO 1.72 K/mm3 (0.84-5.20); LYMPHOCYTES PERCENT AUTO 27 % (21-46); MONOCYTES ABSOLUTE AUTO 0.83 K/mm3 (0.16-1.47); MONOCYTES PERCENT AUTO 13 % (4-13); Mean Corpuscular HGB 30.2 pg (26.0-34.0); Mean Corpuscular HGB Conc 32.3 g/dL (31.5-36.5); Mean Corpuscular Volume 93 fL (80-100); Mean Platelet Volume 10.3 fL (9.1-12.4); NEUTROPHILS ABSOLUTE AUTO 3.62 K/mm3 (1.96-9.15); NEUTROPHILS PERCENT AUTO 56 % (41-73); Platelet Count 177 K/mm3 (150-400); RDW Coefficient Variation 13.2 % (11.7-14.2); RDW Standard Deviation 45.1 fL (35.1-46.3); Red Blood Cell Count 5.07 M/mm3 (4.30-5.90); White Blood Cell Count 6.48 K/mm3 (4.00-11.30)
[2023-08-27 16:27] LABS: Albumin, Blood 3.5 g/dL (3.4-5.0); Albumin/Globulin Ratio 0.9 (0.8-1.8); Bilirubin, Total 0.5 mg/dL (0.1-1.0); Bun/Creatinine Ratio 8.5 (12.0-20.0); Calcium, Blood 8.5 mg/dL (8.5-10.1); Creatinine, Blood 1.41 mg/dL (0.60-1.20); Globulin, Blood 3.7 g/dL (2.2-4.0); Potassium, Blood 4.3 mmol/L (3.5-5.5); Total Protein, Blood 7.2 g/dL (6.4-8.2)
== END | disposition home or self-care (01) ==
LOC: LAB SHORT 16:08 → LAB 16:08
PROVIDERS: Physician Assistant
DX: R10.9 Unspecified abdominal pain (principal)
CPT/HCPCS: 80053; 83690; 85025

== ENCOUNTER → 2024-06-14 | Outpatient (CLI) | payer OTHER | LOC: LAB 07:43 → LAB SHORT 07:43 | DX: M72.2 Plantar fascial fibromatosis (principal) | CPT/HCPCS: 88305 ==

== ENCOUNTER 2024-10-13 15:25 | Emergency (ER) | payer OTHER ==
[~2024-10-13] VITALS: Ht 172.7 cm; Wt 108.0 kg
[2024-10-13] MEDS ORDERED: HYDROCODONE-AC1 EAC7 PO (15:43)
[2024-10-13 16:18] LABS: BASOPHILS ABSOLUTE AUTO 0.03 K/mm3 (0.00-0.23); BASOPHILS PERCENT AUTO 1 % (0-2); EOSINOPHILS ABSOLUTE AUTO 0.14 K/mm3 (0.00-0.68); EOSINOPHILS PERCENT AUTO 2 % (0-6); Hematocrit 42.6 % (37.0-53.0); Hemoglobin 14.2 g/dL (13.5-17.5); IMMATURE GRAN ABSOLUTE AUTO 0.02 K/mm3 (0.00-0.10); IMMATURE GRAN PERCENT AUTO 0 % (0-1); LYMPHOCYTES PERCENT AUTO 27 % (21-46); MONOCYTES ABSOLUTE AUTO 0.74 K/mm3 (0.16-1.47); MONOCYTES PERCENT AUTO 12 % (4-13); Mean Corpuscular HGB 30.3 pg (26.0-34.0); Mean Corpuscular HGB Conc 33.3 g/dL (31.5-36.5); Mean Corpuscular Volume 91 fL (80-100); Mean Platelet Volume 10.4 fL (9.1-12.4); NEUTROPHILS ABSOLUTE AUTO 3.65 K/mm3 (1.96-9.15); NEUTROPHILS PERCENT AUTO 58 % (41-73); Platelet Count 171 K/mm3 (150-400); RDW Coefficient Variation 13.2 % (11.7-14.2); RDW Standard Deviation 44.1 fL (35.1-46.3); Red Blood Cell Count 4.69 M/mm3 (4.30-5.90); White Blood Cell Count 6.28 K/mm3 (4.00-11.30)
[2024-10-13 16:46] LABS: Albumin, Blood 3.8 g/dL (3.4-5.0); Albumin/Globulin Ratio 1.3 (0.8-1.8); Bilirubin, Total 1.3 mg/dL (0.1-1.0); Bun/Creatinine Ratio 9.7 (12.0-20.0); Calcium, Blood 8.9 mg/dL (8.5-10.1); Creatinine, Blood 1.45 mg/dL (0.60-1.20); Potassium, Blood 3.9 mmol/L (3.5-5.5); Total Protein, Blood 6.8 g/dL (6.4-8.2)
[2024-10-13] MEDS ORDERED: Lactated Ringer's 1,000 ML IV ONE (17:15)
[2024-10-13 20:00] VITALS: BP 150/98
== END 2024-10-13 20:39 | disposition home or self-care (01) ==
LOC: ER 15:25
PROVIDERS: Student in an Organized Health Care Education/Training Program
DX: I95.9 Hypotension, unspecified (principal); E86.1 Hypovolemia; M19.90 Unspecified osteoarthritis, unspecified site; Z79.899 Other long term (current) drug therapy; Z79.2 Long term (current) use of antibiotics; Z79.84 Long term (current) use of oral hypoglycemic drugs; Z87.891 Personal history of nicotine dependence
CPT/HCPCS: 71046; 71260; 80053; 84443; 84484; 85025; 85379; 93005; 93010; 93971; 96360-59; 99285-25; J7120; Q9967

== ENCOUNTER 2025-01-25 17:09 | Emergency (ER) | payer OTHER ==
[~2025-01-25] VITALS: Ht 172.7 cm; Wt 97.5 kg
[~2025-01-25 17:09] MED LIST changes: +HYDROCODONE-AC1 EAC7 PO
[2025-01-25] MEDS ORDERED: NS 1,000 ML IV SCH (17:20)
[2025-01-25 18:17] LABS: BASOPHILS ABSOLUTE AUTO 0.02 K/mm3 (0.00-0.23); BASOPHILS PERCENT AUTO 0 % (0-2); EOSINOPHILS ABSOLUTE AUTO 0.14 K/mm3 (0.00-0.68); EOSINOPHILS PERCENT AUTO 2 % (0-6); Hematocrit 38.2 % (37.0-53.0); Hemoglobin 12.7 g/dL (13.5-17.5); IMMATURE GRAN ABSOLUTE AUTO 0.04 K/mm3 (0.00-0.10); IMMATURE GRAN PERCENT AUTO 1 % (0-1); LYMPHOCYTES ABSOLUTE AUTO 1.79 K/mm3 (0.84-5.20); LYMPHOCYTES PERCENT AUTO 25 % (21-46); MONOCYTES ABSOLUTE AUTO 0.70 K/mm3 (0.16-1.47); MONOCYTES PERCENT AUTO 10 % (4-13); Mean Corpuscular HGB Conc 33.2 g/dL (31.5-36.5); Mean Corpuscular Volume 94 fL (80-100); NEUTROPHILS ABSOLUTE AUTO 4.46 K/mm3 (1.96-9.15); NEUTROPHILS PERCENT AUTO 62 % (41-73); NRBC ABSOLUTE 0.00 K/mm3 (0.00-0.02); NRBC Auto 0.0 /100 WBC (0.0-0.2); Platelet Count 142 K/mm3 (150-400); RDW Coefficient Variation 13.8 % (11.7-14.2); RDW Standard Deviation 46.9 fL (35.1-46.3)
[2025-01-25 18:54] LABS: Anion Gap 5.0 mmol/L (3-11); Blood Urea Nitrogen 10.0 mg/dL (8-24); CO2, Blood 31.0 mmol/L (21-32); Calcium, Blood 8.3 mg/dL (8.5-10.1); Chloride, Blood 106.0 mmol/L (98-108); Creatinine, Blood 1.3 mg/dL (0.60-1.20); Glucose, Blood 87.0 mg/dL (70-99); Magnesium, Blood 1.8 mg/dL (1.6-2.4); Potassium, Blood 4.4 mmol/L (3.5-5.5); Sodium, Blood 138.0 mmol/L (136-145)
[2025-01-25 20:30] VITALS: BP 106/85
== END 2025-01-25 20:40 | disposition home or self-care (01) ==
LOC: ER 17:09
PROVIDERS: Emergency Medicine
DX: R55 Syncope and collapse (principal); M41.9 Scoliosis, unspecified; Z87.891 Personal history of nicotine dependence; Z95.0 Presence of cardiac pacemaker; Z79.899 Other long term (current) drug therapy
CPT/HCPCS: 71045; 80048; 83735; 83880; 84484; 85025; 93005; 93010; 96360; 99284-25; J7030